=== PATIENT | male | born 1995 ===

== ENCOUNTER 2017-09-04 14:27 | Emergency (ER) | payer SELFPAY ==
[2017-09-04 14:46] VITALS: BP 133/68; PULSE 69; RESP 16; TEMP 98.5; O2SAT 98
--- NOTE | 2017-09-04 15:07 | ED PDOC ---
Lower Extremity Pain/Injury Time Seen by Provider: 09/04/17 14:56 Chief Complaint (Nursing): Lower Extremity Problem/Injury Chief Complaint (Provider): right foot pain History Per: Patient Additional Complaint(s): 22-year-old male presents with pain to right foot status post kicking his car yesterday. Patient took Tylenol which did not help the pain. He rates pain as an 8 out of 10 upon arrival. Denies any associated right ankle pain. PMD: none Past Medical History Reviewed: Historical Data, Nursing Documentation, Vital Signs Vital Signs: Last Vital Signs Temp 98.5 F 09/04/17 14:44 Pulse 69 09/04/17 14:44 Resp 16 09/04/17 14:44 BP 133/68 09/04/17 14:44 Pulse Ox 98 09/04/17 14:44 - Medical History PMH: No Chronic Diseases - Surgical History Surgical History: Appendectomy - Family History Family History: States: No Known Family Hx - Living Arrangements Living Arrangements: With Family - Social History Current smoker - smoking cessation education provided: Yes Alcohol: Social Drugs: Denies - Home Medications Home Medications: Ambulatory Orders Medication Instructions Recorded Ibuprofen [Motrin Tab] 800 mg PO Q8 PRN #20 tab 09/04/17 - Allergies Allergies/Adverse Reactions: Allergies Allergy/AdvReac Type Severity Reaction Status Date / Time No Known Allergies Allergy Verified 09/04/17 14:47 Wells Criteria for PE - Wells Criteria for Pulmonary Embolism Clinical Signs and Symptoms of DVT: No P.E is #1 Diagnosis, or Equally Likely: No Heart Rate >100: No Immobilization at least 3 days;Surgery previous 4 weeks: No Previous, objectively diagnosed PE or DVT: No Hemoptysis: No Malignancy w/treatment within 6 months, or palliative: No Total Score: 0 Review of Systems ROS Statement: Except As Marked, All Systems Reviewed And Found Negative Musculoskeletal: Positive for: Other (right foot injury) Physical Exam - Reviewed Nursing Documentation Reviewed: Yes Vital Signs Reviewed: Yes - Physical Exam Appears: Positive for: Well, Non-toxic, No Acute Distress Skin: Positive for: Normal Color. Negative for: Rash Eye Exam: Positive for: Normal appearance Extremity: Positive for: Other (Diffuse swelling and tenderness to dorsal aspect of right foot, nontender right ankle, palpable DP pulses, normal capillary refill) Neurologic/Psych: Positive for: Alert, Oriented - ECG O2 Sat by Pulse Oximetry: 98 Pulse Ox Interpretation: Normal - Other Rad Right foot x-ray X-Ray: Interpreted by Me, Viewed By Me X-Ray Interpretation: no fx, no dis Medical Decision Making Medical Decision Makin22 year old male with right foot injury Plan: PO motrin X-ray right foot Patient is aware of x-ray results, all questions answered. Patient given prescription for Motrin. He was instructed on use of crutches. See procedure note. Patient referred to podiatry clinic for follow-up. Procedures - Splinting Location: right foot Pre-Made Type: catina wrap, ortho shoe Pre-Proc Neuro Vasc Exam: normal Post-Proc Neuro Vasc Exam: normal Disposition - Clinical Impression Clinical Impression: Foot sprain, Foot contusion - Patient ED Disposition Is Patient to be Admitted: No Counseled Patient/Family Regarding: Studies Performed, Diagnosis, Need For Followup, Rx Given - Disposition Referrals: Podiatry Clinic [Outside] Disposition: Routine/Home Disposition Time: 16:19 Condition: STABLE Additional Instructions: Ice, rest and elevate affected area. Take prescription meds as directed as needed for pain. Follow-up with podiatry clinic for any persistent symptoms. Prescriptions: Ibuprofen [Motrin Tab] 800 mg PO Q8 PRN #20 tab PRN Reason: Pain, Moderate (4-7) Instructions: Foot Sprain (DC), Contusion (DC) Forms: [employer] (Cro[place]ian), [employer] ED School/Work Excuse Print Language: TURKISH
--- NOTE | 2017-09-04 16:01 | RAD ---
Date of service: 09/04/2017 PROCEDURE: Right Foot Radiographs. HISTORY: trauma COMPARISON: None. FINDINGS: BONES: Normal. No fracture. JOINTS: Normal. SOFT TISSUES: Normal. OTHER FINDINGS: None. IMPRESSION: Normal right foot radiographs.
== END 2017-09-04 16:29 | disposition home or self-care (01) ==
LOC: H.ER 14:27
DX: S90.30XA Contusion of unspecified foot, initial encounter (principal); S93.601A Unspecified sprain of right foot, initial encounter; F17.200 Nicotine dependence, unspecified, uncomplicated; W22.09XA Striking against other stationary object, initial encounter